=== PATIENT | female | born 1945 | race Caucasian/White ===

== ENCOUNTER 2016-09-04 07:04 | Emergency (ER) | payer MEDICARE ==
[~2016-09-04] VITALS: Ht 165.1 cm; Wt 56.8 kg
[~2016-09-04 07:04] MED LIST: ASCO500T7 PO; CO-Q10 PO; CYAN500L PO; [UNRECOGNIZED DRUG - CODE] PO
[2016-09-04 07:05] VITALS: BP 170/74; PULSE 87; RESP 11; O2SAT 99
--- NOTE | 2016-09-04 07:15 | ED.REPORT ---
HPI-Trauma Minor / Fall Date of Service Sep 04, 2016 ED Provider: Junior Jones MD This is a 71 year old female with a history of Parkinson's disease and hypothyroidism presenting to the emergency department via EMS due to GLF that occurred just prior to arrival. Pt reports mechanical fall after slipping in the bathroom, down for approximately one hour. Reports hitting her R shoulder. Symptoms include R hip, R shoulder, and R foot pain.She denies dizziness or lightheadedness. Denies hitting head, nausea, vomiting, headache, neck pain, abdominal pain, constipation, diarrhea, or numbness or tingling in extremities. Nursing Notes Stated Complaint: GLF Nursing Notes Reviewed: Yes (Med[facility], meds not reconciled) Allergies: Coded Allergies: Penicillins (Verified Allergy, Severe, RASH ONLY, OK FOR ANCEF, 04/20/14) iodine (Unverified Allergy, Severe, WHOLE SIDE OF INJECTION GOES NUMB, 04/20/14) VERIFIED WITH PATIENT lactose (Verified Allergy, Intermediate, 04/20/14) hydromorphone (Verified Allergy, Mild, hives, 04/20/14) Scheduled ([Co-Q10]) 1 TAB PO DAILY ASCORBIC ACID-Expunged Drug, Do Not Renew! (ASCORBIC ACID-Expunged Drug, Do Not Renew!) 500 Mg Tablet 3,000 MG PO DAILY Cyanocobalamin-Expunged Drug, Do Not Renew! (Vitamin I-65-Xkhoipmh Drug, Do Not Renew!) 500 Mcg Lozenge 1,000 MCG PO DAILY Scheduled PRN Bruce Carb/Vitamin D3-Expunged, Do Not Renew! 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 Hypothyroidism Parkinson's disease Past Surgical History Resection of carcinoma Hysterectomy and bilateral salpingo-oophorectomy and segmental colectomy Wrist surgery Family History Reviewed, not relevant Smoking History Never Smoker Social History Alcohol Use: Denies alcohol use Drug Use: Denies drug use Other Social History: Good social support, , Local resident Ambulatory Status Independent Review of Systems Constitutional: Denies: Chills, Fever Respiratory: Denies: Non-productive cough, Shortness of breath Musculoskeletal: Reports: Extremity pain, Joint pain, Denies: Back pain Neurologic: Denies: Change LOC, Dizziness, Headache, Lightheaded, Numbness Complete sys rev & neg: except as marked. Physical Exam Initial Vital Signs Vital Signs (First) Date Time Temp Pulse Resp B/P Pulse Ox O2 Delivery O2 Flow Rate FiO2 09/04/16 07:05 36.6 87 11 170/74 99 Room Air Initial VS: Reviewed, Unavailable (none on chart, ordered) ENT: Mucous membranes moist, Conjunctiva normal, No scleral icterus Respiratory: Breath sounds normal, Clear to auscultation, No respiratory distress Cardiovascular: Regular rate & rhythm, Heart sounds normal, Intact distal pulses Abdomen / GI: Soft, Non-tender, No guarding, No rebound, No distention Neurologic: Alert, Oriented, Nonfocal Psychiatric: Mood/affect normal, Behavior normal, Normal thought content General/Constitutional: Awake, Alert Neck: Supple, No meningismus, Full range of motion, No adenopathy, No swelling , Non-tender, No midline vertebral tend Head / Eyes: Atraumatic, Normocephalic, PERRL, EOMI, No periorbital redness, No periorbital swelling Upper Extremity / MS: Atraumatic, Inspection NL, Full range of motion, No swelling, Non-tender, No erythema, No deformity, Neurologic intact, Vascular intact Lower Extremity / Pelvis / MS: Inspection NL, Full range of motion, No swelling , Non-tender, No erythema, No deformity, Neurologic intact, Vascular intact, No edema Patient developed some bruising on the right upper extremity around the shoulder after being in the department shortly (not present on the initial exam, but developed prior to discharge) Neurologic: Oriented X3 Patient has Parkinson's, she has memory issues which are chronic for her, family members are at bedside and state the patient is at baseline No acute focal deficits are appreciated Interpretation & Diagnostics HIP PELVIS X-RAY IMPRESSION: 1.No definitive fracture or dislocation. If clinical symptoms persist or clinical suspicion for pathology is high, advanced imaging such as CT or MRI is suggested for further evaluation. 2. Bilateral symmetrical hip joint degeneration Dictated by: Sally Brandt M.D. on 09/04/2016 at 10:35 Approved by: Sally Brandt M.D. on 09/04/2016 at 10:38 R KNEE X-RAY IMPRESSION: 1. No fracture or dislocation. 2. Severe osteoarthritis. 3. Osteopenia. 4. Possible intra-articular bodies. Dictated by: Sally Brandt M.D. on 09/04/2016 at 10:38 Approved by: Sally Brandt M.D. on 09/04/2016 at 10:40 R SHOULDER X-RAY IMPRESSION: Superior subluxation distal clavicle consist with acute a.c. separation. Dictated by: Sally Brandt M.D. on 09/04/2016 at 9:05 Approved by: Sally Brandt M.D. on 09/04/2016 at 9:06 Re-Eval/Medical Decision Med Decision/Clinical Course This is a pleasant 71-year-old female with Parkinson's reports she had a mechanical slip entering the bathroom and fell. She complains of some soreness around her right shoulder and right hip. She reports she did not strike her head, has no neck pain, denies chest or abdominal injury. sHe denies numbness weakness paresthesias. She denies any recent illness, change of medicine, fevers, GI blood loss or additional complaint. Exam she is a pleasant, frail 71-year-old in no acute distress. However she is some bruising developing on her right upper arm, she has intact preserved range of motion the shoulder. She does not have tenderness over the before meals joint. She has preserved movement of the hip and the knee but complains a little bit of soreness of each. Radiographs of the shoulder, hip and knee were obtained, but no acute fractures were appreciated. The radiologist was concerned about an before meals separation on the right-but this is not clinically evident. In fact on road testing the patient's now using the shoulder without any difficulty, and is able to ambulate and is at baseline. Patient takes Naprosyn which she says works best for her, and received a dose. She is being discharged in the company of family. Routine precautions reviewed. Source of Hx: Old records, EMS Re-Evaluation/Progress : Time of Eval: 11:30 Re-Evaluation/Progress Note: Pt at baseline per family members. Plan for d/c, all questions addressed Counseled Regarding: Diagnosis, Lab results, Need for follow-up, When/why to return to ED Discharge & Departure Impression: Primary Impression: Contusion of leg, right Encounter type: initial encounter Qualified Code: S80.11XA - Contusion of right lower leg, initial encounter Additional Impression: Contusion of shoulder, right Encounter type: initial encounter Qualified Code: S40.011A - Contusion of right shoulder, initial encounter Disposition: Home Discharge Condition All VS Reviewed: Yes Condition: Stable Additional Instructions: 1. No fractures were appreciated on x-ray. 2. Continue activities as tolerated. 3. Continue naproxen (Aleve) twice a day for soreness 4. Return if new or worsening symptoms Referrals: Mayela Matos MD (PCP) Scribe Attestation Portions of this note were transcribed by Deepa Purvis. I, Dr. Jones personally performed the history, physical exam and medical decision-making; I reviewed and confirmed the accuracy of the information in the transcribed note. Signed by: Deepa Purvis. 09/04/2016, 15:00. Junior Jones MD Sep 04, 2016 07:15 DEEPA PURVIS Sep 04, 2016 07:21
--- NOTE | 2016-09-04 09:07 | DRSVH ---
PROCEDURE: X-RAY RIGHT SHOULDER, MINIMUM TWO VIEWS ([id number]) INDICATIONS: Fall pain TECHNIQUE: 2 views of the shoulder were acquired. COMPARISON: None. FINDINGS: Bones: No fractures. Superior subluxation of distal clavicle No suspicious bony lesions. Visualize d ribs appear intact. Soft tissues: No suspicious soft tissue calcifications. IMPRESSION: Superior subluxation distal clavicle consist with acute a.c. separation. Dictated by: Sally Brandt M.D. on 09/04/2016 at 9:05 Approved by: Sally Brandt M.D. on 09/04/2016 at 9:06
[2016-09-04 10:00] VITALS: BP 134/67; PULSE 75; RESP 15; O2SAT 97
--- NOTE | 2016-09-04 10:40 | DRSVH ---
PROCEDURE: X-RAY PELVIS W/LAT HIP (RT) ([id number]) INDICATIONS: Fall pain TECHNIQUE: AP pelvis with lateral view(s) of the right hip(s). COMPARISON: [facility], CT, CHEST/ABD/PELVIS W/CON (PN), 02/26/2013, 10:33. FINDINGS: Bones: No fractures or dislocations. Pelvic ring appears intact. No suspicious bony lesions. Bila teral symmetrical hip joint degeneration. Degenerative disc disease in the lower lumbar spine. There is lucency in the left femoral head opposing to the fovea. Soft tissues: The visualized bowel gas pattern is normal. No suspicious soft tissue calcifications. IMPRESSION: 1.No definitive fracture or dislocation. If clinical symptoms persist or clinical suspicion for path ology is high, advanced imaging such as CT or MRI is suggested for further evaluation. 2. Bilateral symmetrical hip joint degeneration. Dictated by: Sally Brandt M.D. on 09/04/2016 at 10:35 Approved by: Sally Brandt M.D. on 09/04/2016 at 10:38
--- NOTE | 2016-09-04 10:42 | DRSVH ---
PROCEDURE: X-RAY RIGHT KNEE, ONE OR TWO VIEWS ([id number]) INDICATIONS: Fall pain TECHNIQUE: 2 views of the knee were acquired. COMPARISON: [facility], KNEE RT 1 OR 2VW, 06/15/2012, 1:44 PM. FINDINGS: Bones: No fractures or dislocations. No suspicious bony lesions. There is tricompartmental osteoar thritis, severe at the patellofemoral joint. Osteopenia. Possible intra-articular bodies. Soft tissues: Trace knee joint effusion. No suspicious soft tissue calcifications. IMPRESSION: 1. No fracture or dislocation. 2. Severe osteoarthritis. 3. Osteopenia. 4. Possible intra-articular bodies. Dictated by: Sally Brandt M.D. on 09/04/2016 at 10:38 Approved by: Sally Brandt M.D. on 09/04/2016 at 10:40
[2016-09-04 11:51] VITALS: BP 106/71; PULSE 76; RESP 18; O2SAT 98
== END 2016-09-04 11:52 | disposition home or self-care (01) ==
LOC: SED 07:04
DX: S80.11XA Contusion of right lower leg, initial encounter (principal); S40.011A Contusion of right shoulder, initial encounter; W18.30XA Fall on same level, unspecified, initial encounter; Y93.89 Activity, other specified; Y92.012 Bathroom of single-family (private) house as the place of occurrence of the external cause; Y99.8 Other external cause status; E03.9 Hypothyroidism, unspecified; Z88.0 Allergy status to penicillin; Z88.5 Allergy status to narcotic agent; Z88.8 Allergy status to other drugs, medicaments and biological substances

== ENCOUNTER 2016-12-19 14:15 | Emergency (ER) | payer MEDICARE, MEDICAID ==
[~2016-12-19] VITALS: Ht 167.6 cm; Wt 56.8 kg
[2016-12-19 14:26] VITALS: BP 171/88; PULSE 64; RESP 16; O2SAT 99
[2016-12-19] MEDS ORDERED: LEVO25TA5 PO (14:29)
[2016-12-19 15:10] LABS: BASOPHILS % (AUTO) 0.2 % (0-3); EOSINOPHILS % (AUTO) 0 % (0-5); MONOCYTES % (AUTO) 5.2 % (4-12); Mean Corpuscular Hemoglobin 30.8 pg (27.0-35.0); Mean Corpuscular Volume 91.4 fL (81-100); NEUTROPHILS % (AUTO) 88.5 % (40-74); Platelet Count 145 bil/L (150-400)
[2016-12-19 15:29] LABS: Magnesium 2.2 mg/dL (1.6-2.6)
--- NOTE | 2016-12-19 16:47 | ED.REPORT ---
HPI-Abd Pain F 40 and Over Date of Service Dec 19, 2016 ED Provider: Connor Go MD The patient is a 71 year old female with history of mucinous adenocarcinoma of the appendix s/p resection, s/p hysterectomy, hypothyroidism, and Parkinson's disease, who was sent to the emergency department by her primary physician for LLQ abdominal pain that began this morning. The pain has been intermittent and lasts for about 10-15 minutes at a time. She also complains of urinary urgency, hesitancy, and frequency, flank pain, nausea, and subjective fever. She denies dysuria, hematuria, vaginal discharge, or vomiting. Nursing Notes Stated Complaint: ABDOMINAL PAIN/SENT FROM DR DICKSON Chief Complaint: Female Abdominal Pain Nursing Notes Reviewed: Yes Allergies: Coded Allergies: Penicillins (Verified Allergy, Severe, RASH ONLY, OK FOR ANCEF, 04/20/14) iodine (Verified Allergy, Severe, WHOLE SIDE OF INJECTION GOES NUMB, ) VERIFIED WITH PATIENT lactose (Verified Allergy, Intermediate, 04/20/14) hydromorphone (Verified Allergy, Mild, hives, 04/20/14) Scheduled Levothyroxine (Levothyroxine) 25 Mcg Tablet 25 MCG PO DAILY General Time Seen by MD: 16:46 Chief Complaint Abdominal pain Hx Obtained From: Patient, Other family... 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 Hypothyroidism Parkinson's disease Past Surgical History Resection of carcinoma and appendectomy Colon resection Hysterectomy and bilateral salpingo-oophorectomy and segmental colectomy Wrist surgery Tonsillectomy Family History Reviewed, not relevant Smoking History Never Smoker Social History Alcohol Use: Denies alcohol use Drug Use: Denies drug use Other Social History: Good social support, , Local resident Ambulatory Status Independent Review of Systems +urinary hesitancy Constitutional: Reports: Fever (subjective) GI: Reports: Abdominal pain, Nausea, Denies: Vomiting Female: Reports: Flank pain, Urinary frequency, Urinary urgency, Denies: Dysuria, Hematuria, Vaginal discharge Complete sys rev & neg: except as marked. Physical Exam Vital Signs Vital Signs (First) Date Time Temp Pulse Resp B/P Pulse Ox O2 Delivery O2 Flow Rate FiO2 12/19/16 14:26 36.7 64 16 171/88 99 Room Air Initial VS: Reviewed Head / Eyes: Atraumatic, Normocephalic, PERRL ENT: Mucous membranes moist, Conjunctiva normal, No scleral icterus Neck: Supple, Non-tender, Full range of motion Lymphatic: No lymphadenopathy Extremities: Vascular intact, Neuro intact, No tenderness Skin: Warm, Dry, No cyanosis Neurologic: Alert, Oriented, Nonfocal Psychiatric: Mood/affect normal, Behavior normal, Normal thought content General/Constitutional: Awake, Alert, Cooperative Respiratory / Chest: Atraumatic, Breath sounds NL, Breath sounds = bilat, No respiratory distress, No rales, No rhonchi, No wheezing, No stridor Cardiovascular: Heart rate NL, Regular rhythm, Heart sounds NL, No gallop, No murmurs, No rubs, Peripheral circulation NL Lower Ext Edema: Positive: Anasarca, Ankle, Bilateral 1+, Bilateral 2+, Bilateral 3+, Bilateral 4+, Hip, Knee, Left 1+, Left 2+, Left 3+, Left 4+, Non- Pitting, Pitting, Right 1+, Right 2+, Right 3+, Right 4+, Thigh Abdomen: Soft, No guarding, No rebound, BS normoactive, No distention, No hernia, No palpable mass, No pulsatile mass Tenderness/Guarding/Rebound: Positive: Tender LLQ... Referred tenderness to the LLQ. Back: Inspection NL, Non-tender, No CVA tenderness Interpretation & Diagnostics Interpretation & Diagnostics: Urine dip from clinic: negative for infection Lab Results Interpretation Result Diagram: 12/19/16 1500 12/19/16 1500 Test 12/19/16 15:00 White Blood Count 9.9th/mm3 (3.8-10.1) Red Blood Count 4.64mil/mm3 (3.90-5.20) Hemoglobin 14.3g/dL (12.0-15.6) Hematocrit 42.4% (35.0-46.0) Mean Corpuscular Volume 91.4fL (81-100) Mean Corpuscular Hemoglobin 30.8pg (27.0-35.0) Mean Corpuscular Hemoglobin Concent 33.7% (32.0-37.0) Red Cell Distribution Width 13.3% (12.3-15.4) Platelet Count 145bil/L (150-400) Neutrophils (%) (Auto) 88.5% (40-74) Lymphocytes (%) (Auto) 5.9% (14-46) Monocytes (%) (Auto) 5.2% (4-12) Eosinophils (%) (Auto) 0% (0-5) Basophils (%) (Auto) 0.2% (0-3) Sodium Level 136mEq/L (134-144) Potassium Level 4.3mEq/L (3.5-5.2) Chloride Level 98mEq/L (97-108) Carbon Dioxide Level 22mmol/L (18-29) Blood Urea Nitrogen 16mg/dL (8-27) Creatinine 1.02mg/dL (0.57-1.00) Estimat Glomerular Filtration Rate 76mL/min (>59) Glucose Level 128mg/dL (60-99) Calcium Level 9.6mg/dL (8.5-10.1) Magnesium Level 2.2mg/dL (1.6-2.6) Total Bilirubin 0.4mg/dL (0.0-1.2) Aspartate Amino Transf (AST/SGOT) 31U/L (0-50) Alanine Aminotransferase (ALT/SGPT) 27U/L (0-32) Alkaline Phosphatase 49U/L (25-165) Total Protein 7.3g/dL (6.4-8.4) Albumin 4.2g/dL (3.4-5.0) Lipase 34U/L (13-60) Hold Borden Top Tube Received (Received) CT Abd / Pelvis Interpretation IMPRESSION: Mildly obstructive 1-2 mm distal left ureteral calculus at the ureterovesical junction. Additional bilateral nephrolithiasis as above Dictated by: Prem Schaffer M.D. on 12/19/2016 at 17:26 Study type: Abdominal CT no contrast Re-Eval/Medical Decision Source of Hx: Old records, Family Re-Evaluation/Progress #1: Time of Eval: 16:57 Re-Evaluation/Progress Note: Discussed lab results and plan for non-contrast abdominal CT scan. She understands and agrees with plan. All questions were addressed. Re-Evaluation/Progress #2: Time of Eval: 17:36 Re-Evaluation/Progress Note: Pt is informed of the CT results and the plan to discharge with follow-up. Counseled Regarding: Diagnosis, Lab results Discharge & Departure Primary Impression: Ureterolithiasis Disposition: Home Discharge Condition All VS Reviewed: Yes Condition: Stable Patient Instructions: Kidney Stones (ED) Additional Instructions: Thank you for trusting us with your care this morning. Your emergency department CT revealed a small kidney stone that should pass on it's own in the next few days. Take Naproxen one or 2 tablets twice daily. Take 1/2-1 every 4-6 hours for pain. Schedule a follow up appointment with your primary care physician (name provided below) in the next 2-3 days for a recheck. Please return to the emergency department if you begin to develop any new or worsening conditions including any high fevers, chills, nausea, vomiting, or worsening pain. One of the medications you have been prescribed may cause drowsiness. Please do not drive, Drive or use acetaminophen while on this medication. Referrals: Mayela Matos MD (PCP) Scribe Attestation Portions of this note were transcribed by Leola Joshua and Diana Kennedy. I, Dr. Go personally performed the history, physical exam and medical decision-making; I reviewed and confirmed the accuracy of the information in the transcribed note. Signed by: Taran Suarez, 12/19/2016 at 1800. copies to: Mayela Matos MD, Kirk H MD Dec 19, 2016 16:47 Leola Joshua Dec 19, 2016 16:55 DIANA KENNEDY Dec 19, 2016 17:41 Connor Go MD Dec 19, 2016 16:47 Leola Joshua Dec 19, 2016 16:55 DIANA KENNEDY Dec 19, 2016 17:41
--- NOTE | 2016-12-19 17:33 | DRSVH ---
PROCEDURE: CT ABDOMEN AND PELVIS WITHOUT CONTRAST ([id number]) INDICATIONS: Left LQ pain TECHNIQUE: Noncontrast 5 mm thick sections acquired from the diaphragms to the symphysis. 5 mm coronal and sagi ttal reformats were then performed. For radiation dose reduction, the following was used: automated exposure control, adjustment of mA and/or kV according to patient size. COMPARISON: [facility], CT, CHEST/ABD/PELVIS W/CON ([facility]), 02/26/2013, 10:33. FINDINGS: Image quality: Excellent. ABDOMEN: Lung bases: Scattered scarring/dependent atelectasis in the visualized lung bases. Heart size is nor mal. Solid organs: Liver and spleen are normal in size. Gallbladder grossly unremarkable. Pancreas is n ormal in contours. No adrenal nodules. Bilateral nephrolithiasis measuring up to 5 mm on the left, a nd up to 2 x 3 mm on the right. There is mild left hydronephrosis related to a probable 1-2 mm distal left ureteral calculus at the UVJ on image 65 series 2. No evidence of right sided urinary obstructi on. There is mild left perinephric stranding. Peritoneum and bowel: Unenhanced bowel loops demonstrate normal wall thickness and caliber. No free fluid or air. Appendix is not well-seen. The rectum is grossly unremarkable. Nodes and vessels: No retroperitoneal or mesenteric adenopathy by size criteria. Aorta and inferior vena cava are normal in caliber. Miscellaneous: No ventral hernias. PELVIS: Genitourinary: Bladder wall thickness is normal. Miscellaneous: No inguinal hernias or adenopathy. Bones: No suspicious bony lesions. Bilateral L5 pars defects No vertebral body compression fractures . IMPRESSION: Mildly obstructive 1-2 mm distal left ureteral calculus at the ureterovesical junction. Additional bilateral nephrolithiasis as above Dictated by: Prem Schaffer M.D. on 12/19/2016 at 17:26 Approved by: Prem Schaffer M.D. on 12/19/2016 at 17:31
[2016-12-19] MEDS ORDERED: HYDR-4003 PO (17:50)
[2016-12-19 18:04] VITALS: BP 142/91; PULSE 68; RESP 20; O2SAT 97
== END 2016-12-19 18:07 | disposition home or self-care (01) ==
LOC: SED 14:15
DX: N20.1 Calculus of ureter (principal); R11.0 Nausea; R50.9 Fever, unspecified; G20 Parkinson's disease; E03.9 Hypothyroidism, unspecified; E73.9 Lactose intolerance, unspecified; Z88.0 Allergy status to penicillin; Z88.5 Allergy status to narcotic agent; Z88.8 Allergy status to other drugs, medicaments and biological substances

== ENCOUNTER 2016-12-29 21:44 | Emergency (ER) | payer MEDICARE, MEDICAID ==
[~2016-12-29] VITALS: Ht 167.6 cm; Wt 58.0 kg
[~2016-12-29 21:44] MED LIST changes: -ASCO500T7 PO; -CO-Q10 PO; -CYAN500L PO; +HYDR-4003 PO; +LEVO25TA5 PO; -[UNRECOGNIZED DRUG - CODE] PO
[2016-12-29 21:54] VITALS: BP 138/82; PULSE 88; RESP 18; O2SAT 97
--- NOTE | 2016-12-29 22:49 | ED.REPORT ---
HPI-General Illness Date of Service Dec 29, 2016 ED Provider: Phillip Nolen MD A 71 year old female with a history of Parkinson's disease, hypothyroidism, arthritis and cancer s/p resection and chemotherapy presents to the ED following a fall. The pt was walking with her when she stepped from an uneven surface near a sidewalk and fell onto her coccyx. She denies loss of consciousness. The pt also reports falling on her knees, but her denies this and denies other trauma. Nursing Notes Stated Complaint: FALL Chief Complaint: Multiple Trauma/Fall Nursing Notes Reviewed: Yes Allergies: Coded Allergies: Penicillins (Verified Allergy, Severe, RASH ONLY, OK FOR ANCEF, 04/20/14) iodine (Verified Allergy, Severe, WHOLE SIDE OF INJECTION GOES NUMB, ) VERIFIED WITH PATIENT lactose (Verified Allergy, Intermediate, 04/20/14) hydromorphone (Verified Allergy, Mild, hives, 04/20/14) Scheduled Levothyroxine (Levothyroxine) 25 Mcg Tablet 25 MCG PO DAILY Scheduled PRN Hydrocodone-Acetaminophen 5-325 mg (Hydrocodone-Acetaminophen 5-325 mg) 1 Each Tablet 0.5-1 TABLET PO Q4H PRN PRN For Pain General Time Seen by MD: 22:49 Chief Complaint Other (Fall) Hx Obtained From: Patient, Spouse Arrived By: Walk-in Sudden in Onset?: Yes Onset Occurred: 1 - 4 hours ago Symptom Duration: Since onset Recent Healthcare: No recent hospitalization, Recent doctor visit Similar Sx Previous: No Past Medical History Past Medical History 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 Hypothyroidism Arthritis Parkinson's disease Past Surgical History Resection of carcinoma and appendectomy Colon resection Hysterectomy and bilateral salpingo-oophorectomy and segmental colectomy Wrist surgery Tonsillectomy Family History Reviewed, not relevant Smoking History Never Smoker Social History Alcohol Use: Denies alcohol use Drug Use: Denies drug use Other Social History: Good social support, , Local resident Ambulatory Status Independent Review of Systems coccyx pain hip pain Full Review of Systems Respiratory: Denies: Non-productive cough, Shortness of breath Cardiovascular: Denies: Chest pain GI: Denies: Abdominal pain, Nausea, Vomiting Musculoskeletal: Denies: Neck pain Skin: Denies Rash Complete sys rev & neg: except as marked. Physical Exam Vital Signs Vital Signs Date Time Temp Pulse Resp B/P Pulse Ox O2 Delivery O2 Flow Rate FiO2 12/30/16 01:08 36.7 88 16 131/75 97 Room Air 12/29/16 21:54 36.7 88 18 138/82 97 Room Air Initial VS: Reviewed General/Constitutional: Awake, Alert Head / Eyes: Atraumatic, Normocephalic, PERRL, EOMI ENT: Atraumatic, Airway patent, Mucous membranes moist Neck: Atraumatic, Supple, Full range of motion Respiratory / Chest: Atraumatic, Breath sounds NL, Breath sounds = bilat, No respiratory distress Cardiovascular: Heart rate NL, Regular rhythm, Heart sounds NL Abdomen: Atraumatic, Soft, Non-tender Back: Atraumatic, Full range of motion Upper Extremities Upper Extremity / MS: Atraumatic, Full range of motion Lower Extremity / Pelvis / MS: Atraumatic, Full range of motion, Pelvis stable full range of motion of hips knees atraumatic with full range of motion, no visible ruiz Skin: Atraumatic, Color NL, No rash, Warm, Dry Neurologic: Oriented X3, Speech NL, No motor deficits, No sensory deficits Psychiatric: Affect NL, Mood NL Interpretation & Diagnostics Interpretation & Diagnostics: Lumbar Spine X-Ray: no acute findings Hip/Pelvis X-Ray: no acute findings Re-Eval/Medical Decision Med Decision/Clinical Course 71-year-old with ground-level fall after tripping on uneven ground. She has pain in her sacrum and hips with negative x-rays. Home for routine care. Walker use strongly encouraged. Source of Hx: Old records Time of Eval: 00:38 Patient Status: Condition improved Re-Evaluation/Progress Note: Pt rechecked, who is feeling significantly better. The diagnosis and plan for discharge are discussed. The pt understands and agrees with the plan. All questions are addressed at this time. Counseled Regarding: Diagnosis, Lab results, Need for follow-up, When/why to return to ED Discharge & Departure Primary Impression: Fall from ground level Additional Impression: Sacral contusion Encounter type: initial encounter Qualified Code: S30.0XXA - Contusion of lower back and pelvis, initial encounter Disposition: Home Discharge Condition All VS Reviewed: Yes Condition: Stable Patient Instructions: Contusion in Adults (ED), Fall Prevention for Older Adults (ED) Additional Instructions: Tylenol or extra strength Tylenol as needed for pain. Use your walker religiously. Follow-up with your doctor in the office. Return if any immediate issues. Referrals: Mayela Matos MD (PCP) Taran Attestation Portions of this note were transcribed by Armando Voss. I, Dr. Nolen personally performed the history, physical exam and medical decision-making; I reviewed and confirmed the accuracy of the information in the transcribed note. Signed by: Taran Kinsey, 12/30/2016 and 0049. copies to: Mayela Matos MD, Christopher W MD Dec 29, 2016 22:49 ARMANDO VOSS Dec 29, 2016 23:54
[2016-12-30 01:08] VITALS: BP 131/75; PULSE 88; RESP 16; O2SAT 97
--- NOTE | 2016-12-30 07:31 | DRSVH ---
PROCEDURE: X-RAY PELVIS WITH BILATERAL HIPS ([id number]) INDICATIONS: fall TECHNIQUE: AP pelvis with lateral view(s) of the both hip(s). COMPARISON: None. FINDINGS: Bones: No fractures or dislocations. Pelvic ring appears intact but detail is not optimal because o f prominent overlying bowel gas.. No suspicious bony lesions. Soft tissues: The visualized bowel gas pattern is normal. No suspicious soft tissue calcifications. Radiodense sutures are seen in the right iliac fossa from previous intestinal surgery. IMPRESSION: No acute bony abnormality is identified. Detail of the posterior aspect of the pelvic rin g is obscured by prominent bowel gas. If pain persists consider CT scan. Dictated by: Nomi Cash M.D. on 12/30/2016 at 7:24 Approved by: Nomi Cash M.D. on 12/30/2016 at 7:29
--- NOTE | 2016-12-30 07:37 | DRSVH ---
PROCEDURE: X-RAY LUMBAR SPINE, 2 OR 3 VIEW INDICATIONS: fall TECHNIQUE: 3 views of the lumbar spine were acquired. COMPARISON: None. FINDINGS: Bones: I. [id number] vertebrae are present. There is mild scoliosis convex to the right througho ut the lumbar spine. No vertebral body compression fractures. No suspicious bony lesions. No crosst able view of the sacrum and coccyx is slight change in angulation. Subtle nondisplaced transverse fra cture of the sacrum are upper coccyx cannot be excluded on plain film. This can be a normal finding a s well. If there is pain in the area CT scan of the sacrum/pelvis may be useful. Soft tissues: Overlying bowel gas pattern is normal. No suspicious soft tissue calcifications. IMPRESSION: Since pain is on the right side this is unlikely to be a real fracture of the sacrum cocc yx but prominent imaging point of view I cannot rule out a transverse nondisplaced fracture of the sacrum/coccyx. No acute bony abnormality is seen in the lumbar spine. Diffuse moderate to prominent disc degenerativ e disease is present along with a mild rotoscoliosis. Dictated by: Nomi Cash M.D. on 12/30/2016 at 7:29 Approved by: Nomi Cash M.D. on 12/30/2016 at 7:34
== END 2016-12-30 01:08 | disposition home or self-care (01) ==
LOC: SED 21:44
DX: S30.0XXA Contusion of lower back and pelvis, initial encounter (principal); W18.39XA Other fall on same level, initial encounter; Y93.01 Activity, walking, marching and hiking; Y92.480 Sidewalk as the place of occurrence of the external cause; Y99.8 Other external cause status; E03.9 Hypothyroidism, unspecified; G20 Parkinson's disease; Z88.0 Allergy status to penicillin; Z88.5 Allergy status to narcotic agent; Z88.8 Allergy status to other drugs, medicaments and biological substances